=== PATIENT | female | born 1995 | race Caucasian/White ===

== ENCOUNTER 2016-06-20 09:17 | Emergency (ER) | payer MEDICAID ==
[~2016-06-20] VITALS: Ht 154.9 cm; Wt 63.5 kg
[2016-06-20 09:28] VITALS: BP 134/86
--- NOTE | 2016-06-20 09:31 | NUR ---
bed 08
--- NOTE | 2016-06-20 09:31 | NUR ---
Patient ambulated to bed 07.
[2016-06-20] MEDS ORDERED: ACETAMIN/CODEINE 120/12MG-5ML 5 ML UDC PO ONE (09:40)
--- NOTE | 2016-06-20 09:40 | NUR ---
21/F BIB SELF FOR DRY PERSISTENT COUGH X2DAYS. COUGHING THIS AM WITH SCANT BLOODY STREAKS. CONGESTION NOTED. LUNG SOUNDS CLR. BACK OF THROAT RED. ER MD MADE AWARE.
--- NOTE | 2016-06-20 10:10 | NUR ---
SWABBED PATIENTS THROAT X2 FOR STREP, SWABBED NOSE FOR FLU. PT NAJMA WELL. SWABS GIVEN TO LAB.
--- NOTE | 2016-06-20 10:12 | NUR ---
ANETA Méndez at bedside to evaluate patient.
--- NOTE | 2016-06-20 12:10 | NUR ---
Patient discharged with v/s stable. Written and verbal after care instructions given and explained. Patient alert, oriented and verbalized understanding of instructions. Ambulatory with steady gait. All questions addressed prior to discharge. ID band removed. Patient advised to follow up with PMD. Rx of DECADRON AND TYLENOL WITH COCEINE given. Patient educated on indication of medication including possible reaction and side effects. Opportunity to ask questions provided and answered.
[2016-06-20 13:08] VITALS: BP 130/89
== END 2016-06-20 12:10 | disposition home or self-care (01) ==
LOC: MED 09:17
DX: J02.8 Acute pharyngitis due to other specified organisms (principal); B97.89 Other viral agents as the cause of diseases classified elsewhere